=== PATIENT | female | born 1950 | race Caucasian/White ===

== ENCOUNTER 2025-07-20 19:49 | Emergency (ER) | payer OTHER ==
[~2025-07-20] VITALS: Ht 157.5 cm; Wt 73.3 kg
[2025-07-20 20:30] LABS: MEAN PLATELET VOLUME 9.4 FL (7.4-10.4); RED CELL DISTRIBUTION WIDTH 14.7 % (11.5-14.5)
[2025-07-20 20:50] LABS: CREATININE 1.23 MG/DL (0.40-0.90); TOTAL CARBON DIOXIDE 24.0 MMOL/L (24-32); eCRCL 31 ML/MIN; eGFR 43 ML/MIN
--- NOTE | 2025-07-20 22:24 | ELECTROCARDIOGRAPH REPORT ---
[facility] Test Date: 2025-07-20 Test Time: 22:21:08 Pat Name: DEMETRA LAUREANO Department[id number] Room: Gender: F [employer]: : 1950 Requested By: YEE MADERA Order Number: [id number] Reading MD: Dr. Elver Medina Measurements Intervals [place] Rate: 97 P: 56 NM: 198 QRS: 6 QRSD: 89 T: 59 QT: 357 QTc: 454 Interpretive Statements Sinus rhythm Low voltage, extremity and precordial leads Electronically Signed On 07-21-2025 7:40:[address] Elver Medina Please click the below link to view image of tracing.
[2025-07-20] MEDS: LidoCAINE 2% Topical Jelly 11mL syringe (UROJET) TOP ONE (22:50)
[2025-07-20] MEDS: normal saline 1000ML IV soln IVB ONE (23:01)
[2025-07-20] MEDS: ondansetron/PF 4mg/2ml inj IV ONE (23:02)
[2025-07-20] MEDS: morphine 4 MG/ML inj SYRINge IV ONE (23:02)
[2025-07-20] MEDS ORDERED: iohexol 300mg/ml 100ml inj. ONE (23:13)
--- NOTE | 2025-07-20 23:15 | Physician Documentation ---
History of Present Illness ~ Chief Complaint: Abdominal Pain w/vomiting Stated Complaint: POSSIBLE BOWEL BLOCKAGE Time Seen by MD: 23:05 Mode of Arrival: POV HPI Patient presents to the emergency room for evaluation of nausea vomiting abdominal pain and decreased bowel movements. Patient also reports increase in her acid reflux symptoms. Onset of symptoms two weeks ago that has gotten worse. She does see urologist for incontinence that has noted to have 400 cc of urine in his bladder upon arrival. Medication Reconciliation Allergies: Coded Allergies: hydroxychloroquine (Verified Allergy, Intermediate, 07/20/25) codeine (Verified Allergy, Mild, 07/20/25) hydrocodone (Verified Allergy, Mild, 07/20/25) nitrofurantoin (Verified Allergy, Mild, 07/20/25) tramadol (Verified Allergy, Mild, 07/20/25) Scheduled Azithromycin (Zithromax), 1 TAB PO DAILY Ondansetron 8mg ODT (Ondansetron Odt), 1 TAB PO Q6H Review of Systems ROS All review of systems negative except as per HPI Physical Exam Vital Signs: Temperature: 97.6, Source: Temporal, Heart Rate: 95, Respiratory Rate: 16, BP: 114/70, Pulse Oximetry: 99, Weight: 73.300 Physical Exam General: Patient is awake, alert, oriented x4 in no acute distress Head: Normocephalic and atraumatic. Eyes: Conjunctival normal. EOMI. PERRL. ENT: Mucous membranes dry. Neck: Supple, trachea is midline. Chest: Clear to auscultation bilaterally without rales, rhonchi, or wheezes. There is no accessory muscle use or retractions. Cardiac: RRR without murmurs, gallops, or rubs. Abd: Soft, nondistended, nontender, with normoactive bowel sounds. No guarding, rebound, or rigidity. Progress Results/Orders Results/Orders Orders - GENTRY RAMIREZ MD * (A) Durán- Protocol * Q12H@07,19 (07/20/25 22:22) Ct Abdomen Pelvis (07/20/25 23:06) Completed Orders - GENTRY RAMIREZ MD Urinalysis, Cult If Indicated (07/20/25 20:02) Hcg, Ur Ql (07/20/25 20:02) Cbc/Diff (07/20/25 20:02) BMP (07/20/25 20:02) Lipase (07/20/25 20:02) CMP (07/20/25 20:02) Electrocardiogram (07/20/25 22:12) Lidocaine 2% Jelly 11ml Syr (Glydo-Lidoc (07/20/25 22:25) Normal Saline 1000ml (0.9% Sodium Chlori (07/20/25 22:50) Morphine 4mg/Ml Inj. (Morphine Inj.) (07/20/25 23:00) Ondansetron Inj. (Zofran 4mg/2ml Vial) (07/20/25 23:00) Normal Saline 1000ml (0.9% Sodium Chlori (07/20/25 23:10) Ct Abdomen Pelvis (07/20/25 23:06) Iohexol 300mg/Ml 100ml Inj. (Omnipaque-3 (07/20/25 23:13) Famotidine/Pf Iv Inj (Pepcid Iv Inj) (07/21/25 00:35) Pantoprazole 40mg Iv (Protonix 40mg Iv) (07/21/25 00:35) Mag & Alum Hydrox/Simeth Susp (Maalox Or (07/21/25 00:35) Azithromycin Tablet (Zithromax Tablet) (07/21/25 00:40) Medications Received in ER Medications (Trade) Dose Ordered Sig/Dorothy Route PRN Reason Start Time Stop Time Status Last Admin Dose Admin (0.9% sodium chloride (NS) 1000ml IV soln) 1,000 ml ONCE ONCE IVB 07/20/25 22:50 07/20/25 22:51 DC 07/20/25 23:01 1,000 ML (morphine inj.) 4 mg ONCE ONCE IV 07/20/25 23:00 07/20/25 23:01 DC 07/20/25 23:02 4 MG (Zofran 4mg/2ml vial) 4 mg ONCE ONCE IV 07/20/25 23:00 07/20/25 23:01 DC 07/20/25 23:02 4 MG Sodium Chloride 1,000 ml @ 1,000 mls/hr ONCE ONCE IV 07/20/25 23:10 07/21/25 00:09 DC 07/20/25 23:59 1,000 MLS/HR (Pepcid IV inj) 20 mg ONCE ONCE IV 07/21/25 00:35 07/21/25 00:36 DC 07/21/25 00:46 20 MG (Protonix 40mg IV) 80 mg ONCE ONCE IV 07/21/25 00:35 07/21/25 00:54 DC 07/21/25 01:10 80 MG (Maalox oral suspension) 30 ml ONCE ONCE PO 07/21/25 00:35 07/21/25 00:36 DC 07/21/25 00:46 30 ML (Zithromax tablet) 500 mg ONCE ONCE PO 07/21/25 00:40 07/21/25 00:41 DC 07/21/25 00:46 500 MG Vital Signs 07/20/25 07/20/25 07/20/25 07/21/25 19:55 22:08 22:51 00:01 Temp 97.6 97.6 Pulse 102 95 Resp 16 16 16 18 B/P (MAP) 128/78 114/70 (85) Pulse Ox 99 99 07/21/25 07/21/25 00:04 00:49 Temp 97.6 97.4 Pulse 90 90 Resp 20 20 B/P (MAP) 123/65 (84) 127/63 Pulse Ox 97 97 O2 Flow Rate 0 Laboratory Tests Test 07/20/25 20:21 07/20/25 22:47 White Blood Count 13.0 H Red Blood Count 5.50 Hemoglobin 15.9 Hematocrit 46.3 H Mean Corpuscular Volume 84.2 Mean Corpuscular Hemoglobin 28.9 Mean Corpuscular Hemoglobin Concent 34.3 Red Cell Distribution Width 14.7 H Platelet Count 292 Mean Platelet Volume 9.4 Neutrophils (%) (Auto) 79.9 H Lymphocytes (%) (Auto) 11.8 L Monocytes (%) (Auto) 7.7 Eosinophils (%) (Auto) 0.1 Basophils (%) (Auto) 0.5 Neutrophils # (Auto) 10.4 H Lymphocytes # (Auto) 1.5 Monocytes # (Auto) 1.0 H Eosinophils # (Auto) 0.0 Basophils # (Auto) 0.1 CBC Comment Sodium Level 141 Potassium Level 3.9 Chloride Level 105 Carbon Dioxide Level 24.0 Anion Gap 12 Blood Urea Nitrogen 21 H Creatinine 1.23 H Estimated GFR/1.73 m2 43 BUN/Creatinine Ratio 17.1 Glucose Level 118 H Calcium Level 9.3 Total Bilirubin 0.8 Aspartate Amino Transf (AST/SGOT) 24 Alanine Aminotransferase (ALT/SGPT) 35 Alkaline Phosphatase 68 Total Protein 7.5 Albumin 4.2 Globulin 3.3 Albumin/Globulin Ratio 1.3 Lipase 23 Chemistry Comments Urine Specimen Description Straight cath Urine Color Yellow Urine Clarity Clear Urine pH 6.0 Urine Specific [place] 1.025 Urine Protein Negative Urine Glucose (UA) Negative Urine Ketones Trace H Urine Occult Blood Negative Urine Nitrite Negative Urine Bilirubin Negative Urine Urobilinogen 0.2 Urine Leukocyte Esterase Negative Urine Culture Indicated Not ind Volume Urine Centrifuged 10 ml Urine HCG, Qualitative Negative Urine Comment EKG/XRAY/CT/US/VASC/MRI EKG : Additional Comment EKG interpreted by myself shows time of 11/17/2020, rate 97, sinus rhythm, normal axis, no ST changes Medical Decision Making Additional information obtaine: N/A Findings Patient presented to the emergency room with nausea vomiting and abdominal pain. Differentials include but are not limited to intra-abdominal infection, dehydration, small-bowel obstruction, pancreatitis therefore emergent labs and imaging indicated. Labs reassuring. Mild elevation of white blood cell count and given findings of colitis on CT scan I believe patient is suffering from possibly traveler's diarrhea as they are traveling from [place]. Consideration of C diff however no significant elevation of white blood cell count and patient denies any recent history of antibiotics. Patient is feeling better. Given risks and benefits of antibiotic for patient's colitis in the light of traveling and I will treat her with antibiotics. ER precautions discussed. Patient has developed urinary retention. She does take medications for urinary incontinence. I believe the combination of her usual urinary incontinence medication combined with the additional stress/adrenaline from her recent illness that has led to acute urinary retention. I did consider alternative diagnosis such as neurogenic bladder/cauda equina however no history of significant back injuries and she had denies any saddle paresthesias or lower extremity symptoms. ER precautions reviewed regarding lower extremity symptoms. She has been instructed on how to use Durán and return in three days for removal. In his time she is to stop her urinary incontinence medication. Diff Dx GI Bleed:Consideration: Include: Angiodysplasia Diff Dx Pain:Considerations: Include: Angina/TX Diff Dx N/V/D:Considerations: Include: Diarrhea - bacterial Diff Dx Rectal:Considerations: Include: Fistula Departure Disposition: HOME / SELF CARE / HOMELESS Impression: Primary Impression: Acute gastritis Additional Impressions: Colitis Urinary retention Condition: Stable Discharge Instructions: Acute Urinary Retention, Female, Colitis Additional Instructions: Return in three days for Durán catheter removal. Stop your urinary incontinence medication until that time. Return for any unusual feelings when wiping or numbness/weakness your lower extremities. Referrals: NO PRIMARY CARE PROVIDER (PCP) Prescriptions Ondansetron 8mg ODT (Ondansetron Odt) 8 Mg Tab.rapdis 1 TAB PO Q6H for nausea/vomiting for 3 Days, #12 TAB 0 Refills Prov: GENTRY RAMIREZ MD 07/21/25 Azithromycin (Zithromax) 500 Mg Tablet 1 TAB PO DAILY for 3 Days, #3 TAB Prov: GENTRY RAMIREZ MD 07/21/25 Signature Scribe Signature: No scribe Attestation: The note accurately reflects work and decisions made by me.Gentry Ramirez MD 07/21/25 00:47 GENTRY RAMIREZ MD Jul 20, 2025 23:15
[2025-07-20 23:19] LABS: URINE HCG NEGATIVE (NEG)
[2025-07-20 23:40] LABS: LEUKOCYTE ESTERASE ,URINE NEGATIVE (Neg); NITRITES, URINE NEGATIVE (Neg); OCCULT BLOOD,URINE NEGATIVE (Neg)
[2025-07-20 23:46] LABS: UA COLLECTION TYPE STRAIGHT CATH
[2025-07-20] MEDS: normal saline 1000ml 1,000 ML IV ONE (23:59)
--- NOTE | 2025-07-21 00:01 | RADIOLOGY REPORT ---
Exam: CT CT ABDOMEN PELVIS W/ IV CONTRAST History: and pain Comparison Study: None TECHNIQUE: A digital donor relations associate image was obtained. During the uneventful, intravenous administration of contrast material, multislice data acquisition was obtained through the abdomen and pelvis. The data set was subsequently reconstructed into multiplanar reformats. RADIATION DOSE: CTDI vol 18.09 mGy. DLP 971.99 mGy.cm Findings: Lungs: Basilar atelectasis/ scarring. Liver: Unremarkable. Spleen: Too small to characterize hypoattenuating lesion. Pancreas: Unremarkable. Gallbladder: Unremarkable. Adrenals: Unremarkable Kidneys: Unremarkable. Pelvic Viscera: Unremarkable. Vasculature: Atherosclerotic aortoiliac calcification. Retroperitoneum: Unremarkable. Bowel: Colonic diverticulosis. Fluid-filled appearance of the colon. There is mild wall thickening and hyperemia about the descending colon. Mildly prominent appearance of the transverse and ascending colon. Postsurgical changes of the rectosigmoid colon. Musculoskeletal: Unremarkable. Soft tissues: Unremarkable Impression: 1. Findings as above raising the possibility of a colitis of the descending colon in the appropriate clinical setting. Posttreatment follow-up is suggested to ensure appropriate resolution. 2. Additional findings as detailed.
[2025-07-21] MEDS ORDERED: ONDA-245 PO (00:42)
[2025-07-21] MEDS ORDERED: AZIT500T PO (00:42)
[2025-07-21] MEDS: famotidine/PF 10 mg/ml inj IV ONE (00:46)
[2025-07-21] MEDS: mag hydrox/Alum hydrox/simeth 30ml oral suspension PO ONE (00:46)
[2025-07-21 00:49] VITALS: BP 127/63; PULSE 90; RESP 20; TEMP 97.4; O2SAT 97
== END 2025-07-21 01:46 | disposition home or self-care (01) ==
LOC: ER 19:51
DX: K52.9 Noninfective gastroenteritis and colitis, unspecified (principal); K29.00 Acute gastritis without bleeding; R33.9 Retention of urine, unspecified; Z88.5 Allergy status to narcotic agent; Z88.8 Allergy status to other drugs, medicaments and biological substances; Z79.899 Other long term (current) drug therapy
CPT/HCPCS: 36415; 71260; 74177; 80053; 81003; 81025; 83690; 85025; 93005; 96361; 96374; 96375; 99285; J2270; J2405; J2470; J3490; J7030; Q9967; A4314; C1758

== ENCOUNTER 2025-07-23 12:31 | Emergency (ER) | payer OTHER ==
[~2025-07-23] VITALS: Ht 157.5 cm; Wt 71.1 kg
[~2025-07-23 12:31] MED LIST: AZIT500T PO; ONDA-245 PO
--- NOTE | 2025-07-23 14:47 | Physician Documentation ---
History of Present Illness ~ Chief Complaint: Catheter Problem Stated Complaint: CATHETER ISSUES Time Seen by MD: 13:17 OK to notify your PCP?: Yes Source: patient, family Mode of Arrival: POV Exam Limitations: no limitations HPI 74-year-old female who is here to follow up to have her Duffy catheter removed. Apparently she presented here five days ago for abdominal pain with nausea and vomiting was diagnosed with urinary retention and had a Duffy catheter placed and was told to return today to have her Duffy catheter removed. Patient reports that her stools are "small hard balls" and that she is having a lot of "gas pains." No nausea, vomiting, fever, chills, blood in stool. Medication Reconciliation Allergies: Coded Allergies: hydroxychloroquine (Verified Allergy, Intermediate, 07/20/25) codeine (Verified Allergy, Mild, 07/20/25) hydrocodone (Verified Allergy, Mild, 07/20/25) nitrofurantoin (Verified Allergy, Mild, 07/20/25) tramadol (Verified Allergy, Mild, 07/20/25) Scheduled Azithromycin (Zithromax), 1 TAB PO DAILY Ondansetron 8mg ODT (Ondansetron Odt), 1 TAB PO Q6H Past Medical History Past Medical History: *GI/HEPATOBILIARY* Past Surgical History: colectomy Drug Use: none Lives with: Spouse Lives In: Home Review of Systems All Other Systems at this time: Reviewed and Negative Physical Exam Vital Signs: Temperature: 97.8, Source: Oral, Heart Rate: 69, Respiratory Rate: 18, BP: 146/78, Pulse Oximetry: 97, Weight: 71.100 Oxygen Flow Rate: 0 Physical Exam General Appearance: Alert, WD/WN. NAD. HEENT: NCAT, PERRL, EOMI. Neck: Supple, trachea midline. Cardiovascular: RRR. No m/r/g. Lungs: CTAB. Breathing unlabored ABD: SOFT, ND, MILD GENERALIZED TTP, NO GUARDING OR REBOUND, DUFFY CATHETER IN PLACE, CLEAR YELLOW URINE IN BAG. Extremities: Normal inspection. No edema. Skin: Warm/dry, normal color Neurological: Alert and oriented x4, normal gait. Psychiatric: Affect congruent with mood. Progress Results/Orders Results/Orders Orders - BRITTANIE MADRID Cult Urine + [place] [facility] (07/23/25 17:17) Amox Tr/Potassium Clavulanate (Augmentin (07/23/25 17:31) Completed Orders - BRITTANIE MADRID Cbc/Diff (07/23/25 14:56) BMP (07/23/25 14:56) Normal Saline 1000ml (0.9% Sodium Chlori (07/23/25 15:55) Ua W/Microscopic, Cult If Ind (07/23/25 16:45) Medications Received in ER Medications (Trade) Dose Ordered Sig/Dorothy Route PRN Reason Start Time Stop Time Status Last Admin Dose Admin (0.9% sodium chloride (NS) 1000ml IV soln) 1,000 ml ONCE ONCE IVB 07/23/25 15:55 07/23/25 15:56 DC 07/23/25 16:10 1,000 ML Vital Signs 07/23/25 07/23/25 07/23/25 07/23/25 12:32 12:49 12:52 13:01 Temp 97.8 Pulse 71 69 Resp 16 18 B/P (MAP) 183/83 146/78 (100) Pulse Ox 100 97 O2 Flow Rate 0 0 07/23/25 07/23/25 07/23/25 15:16 16:11 17:08 Pulse 68 69 64 Resp 16 16 16 B/P (MAP) 140/67 (91) 131/70 (90) 146/68 (94) Pulse Ox 98 98 99 O2 Flow Rate 0 0 0 Laboratory Tests Test 07/23/25 15:24 07/23/25 16:45 White Blood Count 6.6 Red Blood Count 4.74 Hemoglobin 13.8 Hematocrit 40.1 Mean Corpuscular Volume 84.6 Mean Corpuscular Hemoglobin 29.0 Mean Corpuscular Hemoglobin Concent 34.3 Red Cell Distribution Width 14.7 H Platelet Count 204 Mean Platelet Volume 9.0 Neutrophils (%) (Auto) 66.2 Lymphocytes (%) (Auto) 22.6 Monocytes (%) (Auto) 9.2 Eosinophils (%) (Auto) 1.5 Basophils (%) (Auto) 0.5 Neutrophils # (Auto) 4.4 Lymphocytes # (Auto) 1.5 Monocytes # (Auto) 0.6 Eosinophils # (Auto) 0.1 Basophils # (Auto) 0.0 CBC Comment Sodium Level 142 Potassium Level 3.5 Chloride Level 109 H Carbon Dioxide Level 25.9 Anion Gap 7 L Blood Urea Nitrogen 13 Creatinine 0.98 H Estimated GFR/1.73 m2 55 BUN/Creatinine Ratio 13.3 Glucose Level 84 Calcium Level 8.4 L Albumin 3.2 L Chemistry Comments Urine Specimen Description Cln catch midstream Urine Color Yellow Urine Clarity Cloudy Urine pH 7.0 Urine Specific [place] 1.010 Urine Protein Negative Urine Glucose (UA) Negative Urine Ketones 15 H Urine Occult Blood Moderate H Urine Nitrite Negative Urine Bilirubin Negative Urine Urobilinogen 0.2 Urine Leukocyte Esterase Large H Urine RBC 3-10 Urine WBC Tntc H Urine WBC Clumps Moderate Urine Squamous Epithelial Cells Few Urine Transitional Epithelial Cells Few Urine Bacteria 4+ Urine Mucus None seen Urine Culture Indicated Indicated Volume Urine Centrifuged 10 ml Urine Comment Medical Decision Making Additional information obtaine: old records Findings RECORDS FROM ER VISIT LAST WEEK Urinary Diff Dx:Considerations: Include: AAA, , Aortic dissection, Appendicitis, Bowel obstruction, Cholelithiasis, Choleangitis, DJD, Ectopic , Hepatitis, HNP, Impaction, Intrauterine , Musculoskeletal pain, Ovarian torsion, Pancreatitis, PID, Post-Op complication, Pyelonephritis, Renal failure, Strain, Urinary Obstruction, Urolithiasis, Urinary retention, UTI, Vaginitis Genital Diff Dx:Considerations: Unlikely: Other Departure Time of Disposition: 14:47 Disposition: HOME / SELF CARE / HOMELESS Impression: Primary Impression: Colitis Additional Impressions: Abdominal pain Qualified Codes: R10.84 - Generalized abdominal pain UTI (urinary tract infection) Qualified Codes: N30.01 - Acute cystitis with hematuria Urinary retention Condition: Stable Discharge Instructions: Colitis Additional Instructions: THE CT SCAN THAT YOU HAD LAST WEEK SHOWED ABNORMALITIES WITH YOUR COLON THAT IF YOU HAVE NOT HAD A COLONOSCOPY RECENTLY YOU WOULD NEED TO FOLLOW UP WITH YOUR PRIMARY CARE PROVIDER TO GET AN ORDER FOR THIS WELL POSSIBLE FOLLOW UP IMAGING TO CONFIRM RESOLUTION OF WHAT WAS NOTED BELOW. I SUSPECT THAT THE GENERALIZED ABDOMINAL PAIN THAT YOU ARE CURRENTLY HAVING IS RELATED TO COLITIS. IT IS REASSURING THAT YOU DO NOT HAVE A FEVER OR ANY VOMITING. UNCLEAR WHY YOU EXPERIENCED URINARY RETENTION LAST WEEK YOUR URINE TEST DONE LAST WEEK WAS CLEAR OF INFECTION. IF FEVER, CHILLS, VOMITING, INCREASING PAIN RETURN TO ER OTHERWISE F/U WITH PCP NEXT WEEK. COPY OF CT SCAN RESULTS BELOW Exam: CT CT ABDOMEN PELVIS W/ IV CONTRAST History: and pain Comparison Study: None TECHNIQUE: A digital lead caregiver image was obtained. During the uneventful, intravenous administration of contrast material, multislice data acquisition was obtained through the abdomen and pelvis. The data set was subsequently recon structed into multiplanar reformats. RADIATION DOSE: CTDI vol 18.09 mGy. DLP 971.99 mGy.cm Findings: Lungs: Basilar atelectasis/ scarring. Liver: Unremarkable. Spleen: Too small to characterize hypoattenuating lesion. Pancreas: Unremarkable. Gallbladder: Unremarkable. Adrenals: Unremarkable Kidneys: Unremarkable. Pelvic Viscera: Unremarkable. Vasculature: Atherosclerotic aortoiliac calcification. Retroperitoneum: Unremarkable. Bowel: Colonic diverticulosis. Fluid-filled appearance of the colon. There is mild wall thickening and hyperemia about the descending colon. Mildly prominent appearance of the transverse and ascending colon. Postsurgical changes of the rectosigmoid colon. Musculoskeletal: Unremarkable. Soft tissues: Unremarkable Impression: 1. Findings as above raising the possibility of a colitis of the descending colon in the appropriate clinical setting. Posttreatment follow-up is suggested to ensure appropriate resolution. 2. Additional findings as detailed. Referrals: NO PRIMARY CARE PROVIDER (PCP) Prescriptions Amox Tr/Potassium Clavulanate (Augmentin 875-125 Tablet) 1 Each Tablet 1 TAB PO Q12H for 7 Days, #14 TAB Prov: BRITTANIE MADRID 07/23/25 Education Educated: Patient Educated regarding: diagnosis, treatment, need for follow up Signature Scribe Signature: Umm Attestation: BRITTANIE BROUSSARD Jul 23, 2025 14:47
[2025-07-23 15:47] LABS: MEAN PLATELET VOLUME 9.0 FL (7.4-10.4); RED CELL DISTRIBUTION WIDTH 14.7 % (11.5-14.5)
[2025-07-23 15:54] LABS: CREATININE 0.98 MG/DL (0.40-0.90); TOTAL CARBON DIOXIDE 25.9 MMOL/L (24-32); eCRCL 39 ML/MIN; eGFR 55 ML/MIN
[2025-07-23] MEDS: normal saline 1000ML IV soln IVB ONE (16:10)
[2025-07-23 17:08] VITALS: BP 146/68; PULSE 64; RESP 16; O2SAT 99
[2025-07-23 17:11] LABS: LEUKOCYTE ESTERASE ,URINE LARGE (Neg); NITRITES, URINE NEGATIVE (Neg); OCCULT BLOOD,URINE MODERATE (Neg)
[2025-07-23 17:15] LABS: UA COLLECTION TYPE CLN CATCH MIDSTREAM
[2025-07-23 17:17] LABS: MUCUS STRANDS NONE SEEN /LPF (Neg); SQUAMOUS EPITHELIAL CELL,UR FEW /LPF (FEW); WBC CLUMPS,URINE MODERATE /HPF (NEGATIVE)
[2025-07-23] MEDS ORDERED: AMOX-117 PO (17:36)
[2025-07-23] MEDS: amox tr/potassium clavulanate 875/125mg TAB PO STA (17:44)
[2025-07-23 18:00] VITALS: TEMP 97.8
== END 2025-07-23 18:02 | disposition home or self-care (01) ==
LOC: ER 12:31
DX: K52.9 Noninfective gastroenteritis and colitis, unspecified (principal); N39.0 Urinary tract infection, site not specified; Z88.5 Allergy status to narcotic agent; Z90.49 Acquired absence of other specified parts of digestive tract
CPT/HCPCS: 36415; 51798; 80048; 81001; 85025; 87077; 87088; 87186; 96360; 99285; J7030